=== PATIENT | female | born 1960 | race Caucasian/White ===

== ENCOUNTER 2018-02-06 08:58 | Emergency (ER) | payer OTHER ==
[~2018-02-06] VITALS: Ht 152.4 cm; Wt 68.0 kg
--- OUTSIDE RECORDS SUMMARY | 2018-02-06 09:01 | XMS REPORT ---
Author Ronnie Tristan Organization [employer] Address Unknown Phone Unavailable Care Team Providers Care Wharf Laborer Name Role Phone Ronnie Mansfield CP Unavailable Allergies No Known Allergies Problems Problem Type Condition Code Onset Dates Condition Status Problem Lumbosacral radiculopathy M54.17 Active Problem Sjogrens syndrome M35.00 Active Problem Dermatitis L30.9 Active Problem Acquired hallux valgus of left foot M20.12 Active Problem Acquired hallux valgus of right foot M20.11 Active Medications No Known Medications Results No Known Results Summary Purpose [employer] Submission
--- OUTSIDE RECORDS SUMMARY | 2018-02-06 09:01 | XMS REPORT ---
Author Ronnie Tristan Organization [employer] Address Unknown Phone Unavailable Care Team Providers Care Research Instrumentation Technician Name Role Phone Ronnie Mansfield CP Unavailable Allergies No Known Allergies Problems Problem Type Condition Code Onset Dates Condition Status Problem Tinea pedis of both feet B35.3 Active Problem Lumbosacral radiculopathy M54.17 Active Problem Plantar fasciitis M72.2 Active Problem Acquired hallux valgus of left foot M20.12 Active Problem Acquired hallux valgus of right foot M20.11 Active Problem Dermatitis L30.9 Active Problem Sjogrens syndrome M35.00 Active Medications No Known Medications Results No Known Results Summary Purpose [employer] Submission
--- OUTSIDE RECORDS SUMMARY | 2018-02-06 09:01 | XMS REPORT | Clinical Summary ---
Author Author [employer] [facility] Organization [facility] [facility] Address Unknown Phone Unavailable Care Team Providers Care Lime Kiln Worker Name Role Phone Ravi Pham MD PCP Allergies No Known Allergies Medications End Date Status Medication Sig Dispensed Refills Start Date Active gabapentin (GRALISE) 600 Gralise 600 0 mg tablet extended mg release 24 hr tablet,extend ed release Active dicyclomine (BENTYL) 20 dicyclomine 0 mg tablet 20 mg tablet Active hydroxychloroquine Take 200 mg 3 (PLAQUENIL) 200 mg tablet by mouth 8 daily. Active cevimeline (EVOXAC) 30 mg Take 30 mg by 3 capsule mouth 3 8 (three) times a day. Active triamterene-hydrochloroth TAKE 1 TABLET 3 iazid (MAXZIDE-25) BY MOUTH IN 8 37.5-25 mg per tablet THE MORNING ONCE A DAY Active traMADol (ULTRAM) 50 mg TAKE 1 TABLET 0 tablet BY MOUTH 3 8 TIMES A DAY DIRECTED Active tiZANidine (ZANAFLEX) 4 Take 4 mg by 0 MG tablet mouth daily 8 as needed. Active denosumab (PROLIA) 60 Prolia 60 0 mg/mL syringe syringe mg/mL subcutaneous syringe INJECT 1 MILLILITER (60 MG) BY SUBCUTANEOUS ROUTE EVERY 6 MONTHS IN THE UPPER ARM, UPPER THIGH OR ABDOMEN Active Problems Not on file Family History Medical History Relation Name Comments Breast cancer Mother Ovarian cancer Mother Relation Name Status Comments Mother Social History Date Tobacco Use Types Packs/Day Years Used Never Smoker Smokeless Tobacco: Never Used Sex Assigned at Date Recorded Not on file Industry Job Start Date Occupation Not on file Not on file Not on file Travel End Travel History Travel Start No recent travel history available. Last Filed Vital Signs Time Taken Vital Sign Reading - Blood Pressure - - Pulse - - Temperature - - Respiratory Rate - - Oxygen Saturation - - Inhaled Oxygen - Concentration 01/05/2018 10:29 AM CDT Weight 68 kg (150 lb) 01/05/2018 10:29 AM CDT Height 152.4 cm (5') 01/05/2018 10:29 AM CDT Body Mass Index 29.29 Plan of Treatment Health Maintenance Due Date Last Done Comments MMR VACCINES (1 of - 07/14/1959 Standard series) VARICELLA VACCINES (1 of 07/14/1971 2 - 2-dose adolescent series) CERVICAL CANCER SCREENING 07/14/1979 BREAST CANCER SCREENING 2008 COLON CANCER SCREENING 2008 SHINGRIX VACCINE (1 of 2) 2008 INFLUENZA VACCINE 10/20/2017 HEPATITIS B VACCINES Aged Out No longer eligible based on patient's age to complete this topic IPV VACCINES Aged Out No longer eligible based on patient's age to complete this topic MENINGOCOCCAL VACCINE Aged Out No longer eligible based on patient's age to complete this topic Results Not on fileafter 02/05/2017 Insurance Payer Benefit Subscriber ID Type Phone Address Plan / Group CIGNA CIGNA PPO xxxxxxxxx PPO Advance Directives Patient has advance care planning documents on file. For more information, alfredo e contact: Kaden Guerrero [address] [place] [address]
--- OUTSIDE RECORDS SUMMARY | 2018-02-06 09:01 | XMS REPORT ---
Author Author [facility] Address Unknown Phone Unavailable Care Team Providers Care Engine Oiler Name Role Phone Unavailable Unavailable Payers Payer Name Policy Type Policy Number Effective Date Expiration Date Problems This patient has no known problems. Allergies, Adverse Reactions, Alerts Allergy Name Allergy Type Status Severity Reaction(s) Onset Date Inactive Date Treating Clinician Comments No Known Allergies DA Active U 2018-01-25 00:00:00 No Known Allergies DA Active U 2012-02-03 00:00:00 Medications This patient has no known medications.
--- OUTSIDE RECORDS SUMMARY | 2018-02-06 09:01 | XMS REPORT ---
Author Ronnie Tristan [facility] [employer] Address Unknown Phone Unavailable Care Team Providers Care Toppiece Cutter Name Role Phone Ronnie Mansfield CP Unavailable Allergies No Known Allergies Problems Problem Type Condition Code Onset Dates Condition Status Assessment Sjogrens syndrome M35.00 Active Assessment Dermatitis L30.9 Active Assessment Lumbosacral radiculopathy M54.17 Active Assessment Tinea pedis of both feet B35.3 Active Assessment Acquired hallux valgus of right foot M20.11 Active Problem Dermatitis L30.9 Active Problem Lumbosacral radiculopathy M54.17 Active Problem Tinea pedis of both feet B35.3 Active Problem Acquired hallux valgus of right foot M20.11 Active Assessment Acquired hallux valgus of left foot M20.12 Active Problem Sjogrens syndrome M35.00 Active Problem Acquired hallux valgus of left foot M20.12 Active Medications Medication Code System Code Instructions Start Date End Date Status Dosage Topicort [facility] [id number] 0.05 % Externally Twice a day Nov 11, 2016 Dec 11, 2016 Active 1 application to affected area Results No Known Results Summary Purpose eClinicalWorks Submission
--- OUTSIDE RECORDS SUMMARY | 2018-02-06 09:01 | XMS REPORT | Continuity of Care Document ---
Author Author [facility] Interface Address Unknown Phone Unavailable Problems Problem Status Onset Date Classification Date Reported Comments Source R11.0 / R10.84 / K30 Active 12/07/2016 [facility] Tinea pedis of both feet Active Problem 09/21/2017 [facility] Lumbosacral radiculopathy Active Problem 09/21/2017 [facility] Plantar fasciitis Active Problem 09/21/2017 [facility] Acquired hallux valgus of left foot Active Problem 09/21/2017 [facility] Acquired hallux valgus of right foot Active Problem 09/21/2017 [facility] Dermatitis Active Problem 09/21/2017 [facility] Sjogrens syndrome Active Problem 09/21/2017 [facility] Hammertoe of right foot Active Problem 09/21/2017 [facility] Medications Medication Details Route Status Patient Instructions Ordering Provider Order Date Source Topicort 1 application to affected area Externally Active 0.05 % Externally Twice a day [facility] 11/11/2016 [facility] Allergies, Adverse Reactions, Alerts Substance Category Reaction Severity Reaction type Status Date Reported Comments Source Immunizations Immunization Date Given Site Status Last Updated Comments Source Results Order Name Results Value Reference Range Date Interpretation Comments Source Stomach emptying NM Stomach emptying NM Stomach emptying NM CLINICAL HISTORY: - K30 Functional dyspepsia; TECHNIQUE: 1 mCi of sulfur colloid meal was administered orally. Images were performed in anterior projection and an excretion curve plotted. FINDINGS: There is prompt activity identified within the stomach and prompt excretion into the small bowel thereafter. The slope of the excretion curve is within normal limits. The T half life is 65 minutes. (Normal range of 45min- 110min). % excretion at approx. 60 minutes: 47 % % excretion at approx. 90 minutes: 66 % % excretion at approx. 120 minutes: 75 % % excretion at approx. 180 minutes: 84 % % excretion at approx. 240 minutes: 91 % (Normal <10% residual) IMPRESSION: Normal gastric emptying study. SL: [id number] 12/14/2016 - - Read by: Dereck Piña MD Dictated Date/time: 12/14/16 14:44 Electronically Signed by: Dereck Piña MD 12/14/16 14:45 FINAL REPORT [facility] Abdomen complete US Abdomen complete US Patient Name: RASHARD KESSLER : 1960; Age: 56 years y/o Female MR: [id number] Study: Abdomen complete US 12/14/2016 8:38 AM CDT Ordering Physician: Gonsalo Haro MD Clinical Indication: - R10.84 Generalized abdominal pain; Comparison: None TECHNIQUE: Grayscale and limited color sonographic evaluation of the abdomen was performed with standard technique. FINDINGS: LIVER: The visualized liver shows normal contour, size, and morphology with normal parenchymal echo texture. BILE DUCTS: The intrahepatic and extrahepatic bile ducts are not dilated with the common bile duct measuring 5 mm. The distal common bile duct is not well seen. GALLBLADDER: There are no gallstones, gallbladder sludge, pericholecystic fluid or wall thickening. PANCREAS: The visualized pancreas appears unremarkable. SPLEEN: The spleen is unremarkable and measures 9.5 x 5 x 4 cm. KIDNEY: The right kidney measures 10 x 4.5 x 4.5 cm. The left kidney measures 10.3 x 4 x 5 cm. No pelvocaliectasis, nephrolithiasis or renal mass lesion identified bilaterally. AORTA AND INFERIOR VENA CAVA: Visualized portions appear unremarkable. ASCITES: There is no abdominal ascites. IMPRESSION: 1. Unremarkable abdominal ultrasound. SL: [id number] 12/14/2016 - - Read by: Emory Wolf MD Dictated Date/time: 12/14/16 11:27 Electronically Signed by: Emory Wolf MD 12/14/16 11:28 FINAL REPORT [facility] Vital Signs Vital Sign Value Date Comments Source Encounters Location Location Details Encounter Type Encounter Number Reason For Visit Attending Provider ADM Date DC Date Status Source [facility] Outpatient [id number] Gonsalo Haro 12/14/2016 12/15/2016 [facility] Procedures Procedure Code Date Perfomer Comments Source
--- OUTSIDE RECORDS SUMMARY | 2018-02-06 09:01 | XMS REPORT ---
Author Ronnie Tristan [facility] [employer] Address Unknown Phone Unavailable Care Team Providers Care Smasher Hand Name Role Phone Ronnie Mansfield CP Unavailable Allergies No Known Allergies Problems Problem Type Condition Code Onset Dates Condition Status Problem Acquired hallux valgus of right foot M20.11 Active Problem Plantar fasciitis M72.2 Active Problem Tinea pedis of both feet B35.3 Active Problem Hammertoe of right foot M20.41 Active Problem Dermatitis L30.9 Active Problem Acquired hallux valgus of left foot M20.12 Active Problem Lumbosacral radiculopathy M54.17 Active Problem Sjogrens syndrome M35.00 Active Medications No Known Medications Results No Known Results Summary Purpose [employer]ClinicalWorks Submission
--- OUTSIDE RECORDS SUMMARY | 2018-02-06 09:01 | XMS REPORT | Summary of Care ---
Author Author [facility] Organization [facility] Address Unknown Phone Unavailable Encounter [facility] Encntr_alisweetie(FIN) [id number] Date(s): 12/14/16 - 12/14/16 [facility] [address] [place] [address]- Discharge Disposition: Home or Self Care Attending Physician: Gonsalo Haro MD Referring Physician: Gonsalo Haro MD Vital Signs No data available for this section Problem List No data available for this section Allergies, Adverse Reactions, Alerts No data available for this section Medications No data available for this section Results No data available for this section Immunizations No data available for this section Procedures No data available for this section Social History No data available for this section Assessment and Plan No data available for this section
[2018-02-06] MEDS ORDERED: PANTOPRAZOLE 40 MG 10ML VIAL IV NR (09:14)
[2018-02-06] MEDS ORDERED: SODIUM CHLORIDE 0.9% 1000ML 1,000 ML IV STA ×2 (09:14→12:58)
[2018-02-06] MEDS ORDERED: ONDANSETRON HCL INJ 2 MG/ML VIAL IV NR ×2 (09:14→11:11)
[2018-02-06 09:26] VITALS: BP 116/65
[2018-02-06 09:30] LABS: BASOPHILS % 0.5 % (0.0-1.0); EOSINOPHILS # (AUTO) 0.2 (0.0-0.4); HEMATOCRIT 33.1 % (34.2-44.1); HEMOGLOBIN 10.7 g/dL (12.0-16.0); LYMPHOCYTES # (AUTO) 0.9 (1.0-3.2); LYMPHOCYTES % 11.8 % (18.0-39.1); MEAN CORPUSCULAR HEMOGLOBIN 30.5 pg (28-32); MEAN CORPUSCULAR HGB CONC 32.3 g/dL (31-35); MEAN CORPUSCULAR VOLUME 94.3 fL (81-99); MONOCYTES # (AUTO) 0.6 (0.2-0.8); MONOCYTES % 7.5 % (4.4-11.3); NEUTROPHILS # (AUTO) 6.1 (2.1-6.9); NEUTROPHILS % 76.6 % (38.7-80.0); PLATELET COUNT 312 x10e3/uL (140-360); RED BLOOD COUNT 3.51 x10e6/uL (3.6-5.1)
[2018-02-06] MEDS ORDERED: DICYCLOMINE HCL 20 MG/2 ML VIAL IM ONE (09:30)
[2018-02-06] MEDS ORDERED: EVOXAC30 MG PO (09:34)
[2018-02-06] MEDS ORDERED: MAXZIDE 37.5 M1 EACH PO (09:34)
[2018-02-06] MEDS ORDERED: ZOFRAN4 MG PO (09:34)
[2018-02-06] MEDS ORDERED: CALTRATE PLUS1 EACH PO (09:34)
[2018-02-06] MEDS ORDERED: PROLIA60 MG/1 ML IM (09:34)
[2018-02-06] MEDS ORDERED: PLAQUENIL200 MG PO (09:34)
[2018-02-06] MEDS ORDERED: BENTYL10 MG/1 ML PO (09:34)
[2018-02-06 09:40] LABS: INR 0.95; PROTHROMBIN TIME 13.5 seconds (11.9-14.5)
[2018-02-06 09:41] LABS: PARTIAL THROMBOPLASTIN TIME 28.4 seconds (23.8-35.5)
[2018-02-06 09:49] LABS: ALANINE AMINOTRANSFERASE 16 IU/L (0-55); ALBUMIN 3.7 g/dL (3.5-5.0); ALBUMIN/GLOBULIN RATIO 0.9 (0.8-2.0); ALKALINE PHOSPHATASE 112 IU/L (40-150); AMYLASE 51 U/L (25-125); ANION GAP 15.9 mmol/L (8-16); BLOOD UREA NITROGEN 8 mg/dL (7-26); BUN/CREATININE RATIO 10 (6-25); CALCIUM 8.5 mg/dL (8.4-10.2); CARBON DIOXIDE 24 mmol/L (22-29); CHLORIDE 107 mmol/L (98-107); CREATINE KINASE 63 IU/L (29-168); CREATININE, SERUM 0.78 mg/dL (0.57-1.11); EST GLOMERULAR FILTRATION RATE > 60 ML/MIN (60-); GLUCOSE 104 mg/dL (74-118); LIPASE 23 U/L (8-78); MAGNESIUM 2.1 MG/DL (1.3-2.1); POTASSIUM 3.9 mmol/L (3.5-5.1); SODIUM 143 mmol/L (136-145)
[2018-02-06 10:00] VITALS: BP 118/58
--- NOTE | 2018-02-06 10:09 | Diagnostic Imaging Report ---
EXAMINATION: CHEST SINGLE (PORTABLE) COMPARISON: None INDICATION: Epigastric pain and diarrhea DISCUSSION: Frontal view of the chest obtained at 0951 hours. HEART AND MEDIASTINUM: The cardiomediastinal silhouette is unremarkable. LINES: None. LUNGS: The lungs are well inflated and clear. No pneumonia or pulmonary edema. PLEURA: No pleural effusion or pneumothorax. BONES AND SOFT TISSUES: No focal osseous lesion. Tiny curvilinear calcification just superior to the left humeral head is suggestive of calcific tendinitis. A fusion plate in the lower cervical spine is incompletely imaged but otherwise unremarkable. The soft tissues are normal. IMPRESSION: No acute cardiopulmonary disease. Signed by: Dr. Niko Garces MD on 02/06/2018 10:06 AM
[2018-02-06 10:44] LABS: BILIRUBIN,URINE NEGATIVE (NEGATIVE); CLARITY,URINE CLEAR (CLEAR); COLOR,URINE YELLOW (YELLOW); KETONES,URINE TRACE (NEGATIVE); LEUKOCYTE ESTERASE ,URINE NEGATIVE (NEGATIVE); NITRITE,URINE NEGATIVE (NEGATIVE); PROTEIN,URINE DIPSTICK NEGATIVE (NEGATIVE); URINE UROBILINOGEN 0.2 mg/dL (0.2 - 1)
[2018-02-06 10:54] LABS: BACTERIA,URINE FEW /HPF; EPITHELIAL CELLS,URINE FEW /LPF; MUCUS,URINE FEW (RARE); RBC,URINE 0-5 /HPF (0-5); WBC,URINE (MAN) 0-5 /HPF (0-5)
[2018-02-06] MEDS ORDERED: MORPHINE SULFATE 2 MG/ML SYR IV NR (11:11)
[2018-02-06] MEDS ORDERED: SODIUM CHLORIDE 0.9% 50ML 50 ML ONE (11:59)
[2018-02-06] MEDS ORDERED: IOPAMIDOL 370 MG/ML 200 ML INFUS..BTL INJ ONE (12:00)
--- NOTE | 2018-02-06 12:16 | Diagnostic Imaging Report ---
CT Abdomen And Pelvis with Intravenous Contrast INDICATION: Epigastric pain and diarrhea TECHNIQUE: Thin collimation axial images obtained from the diaphragm to the level of the pubic symphysis following the uneventful administration of 100 cc of low osmolar, nonionic intravenous contrast. Patient was unable to tolerate oral contrast. Dose reduction techniques used: Automated exposure control, adjustment of the mAs and/or kVp according to patient size, standardized low-dose protocol, and/or iterative reconstruction technique. RADIATION DOSE: Total DLP: 405 mGy*cm Estimated effective dose: (DLP x 0.015 x size factor) mSv CTDIvol has been reviewed. It is below the limits set by the Radiation Protocol Committee (RPC). COMPARISON: None. ABDOMEN FINDINGS: Lung Bases: Wispy bands of subsegmental atelectasis in the lung bases. There are bilateral breast prostheses. Visualized portions of the mediastinum is unremarkable. Liver: No evidence for mass. Gallbladder: Present and appears normal. No biliary ductal dilatation. Pancreas: Normal attenuation without mass or ductal dilatation. Spleen: Normal in size. No evidence of mass.. Adrenal Glands: No evidence for mass. Kidneys: Right: Normal enhancement. No soft tissue mass. No hydronephrosis. Left: Lateral scarring of the upper pole. Normal enhancement elsewhere. No soft tissue mass. No hydronephrosis. Lymph Nodes: No enlarged abdominal or retroperitoneal lymph nodes. Aorta: Normal in diameter PELVIS FINDINGS: Bowel: Stomach: Normal. Small Bowel: Normal in caliber with normal wall thickness. Large Bowel: Normal in caliber with normal wall thickness. Appendix: Normal appendix. Bladder: Underdistended but otherwise normal. No ureteral dilatation. The uterus is present and normal in morphology. No adnexal mass. Peritoneum/retroperitoneum: No free fluid or fluid collection. Bones: Grade 1 anterolisthesis of L4 on L5 without pars defects. No compression deformities. Mild ureter changes of the lower thoracic spine. Soft tissues: Unremarkable. IMPRESSION: 1. No evidence for bowel obstruction or inflammation. Normal appendix 2. Focal scarring of the left kidney as described above. No signs/symptoms of acute pyelonephritis. Signed by: Dr. Niko Garces MD on 02/06/2018 12:12 PM
== END 2018-02-06 14:14 | disposition home or self-care (01) ==
LOC: ER 08:58
DX: R10.13 Epigastric pain (principal); R11.0 Nausea; R19.7 Diarrhea, unspecified; K29.00 Acute gastritis without bleeding; I10 Essential (primary) hypertension; M35.00 Sjogren syndrome, unspecified
CPT/HCPCS: 36415; 71045; 74177; 80053; 81001; 82150; 82550; 82553; 83605; 83690; 83735; 84484; 85025; 85610; 85730; 87086; 93005; 99284; J0500; J2270; J2405; J7030; Q9967